=== PATIENT | female | born 1950 | race Caucasian/White ===

== ENCOUNTER 2017-08-06 14:41 | Emergency (ER) | payer OTHER ==
--- NOTE | 2017-08-06 15:28 | RAD REPORT ---
EXAM DESCRIPTION: RAD - Chest Single View - 08/06/2017 3:18 pm CLINICAL HISTORY: Chest pain. COMPARISON: None. FINDINGS: Portable technique limits examination quality. The lungs are grossly clear. The heart is normal in size. No displaced fractures. IMPRESSION: No acute intrathoracic process suspected.
[2017-08-06 15:51] LABS: Urine Blood TRACE (NEG); Urine Glucose 2+ (NEG); Urine Protein NEGATIVE (NEG)
[2017-08-06] MEDS ORDERED: INSULIN -REGULAR HUMAN 50 UNIT/0.5 ML ML ONE (16:04)
[2017-08-06 16:05] LABS: Absolute Lymphocytes (CBC) 1.4 K/uL (0.7-4.9); Absolute Monocytes 0.7 K/uL (0.1-1.3); Basophils % 0.6 % (0-1.3); Eosinophils % 1.3 % (0-4.4); Hematocrit 35.6 % (36.0-45.0); Lymphocytes % 13.8 % (15.3-44.8); MCH 27.6 pg (27.0-35.0); MCV 84.6 fL (80-100); MPV 8.7 fL (7.6-11.3); Monocytes % 6.7 % (3.3-12.3); RBC Red Blood Cell Count 4.21 M/uL (3.86-4.86)
[2017-08-06] MEDS ORDERED: METOPROLOL TARTRATE 5 MG/5 ML INJ IV ONE (16:05)
[2017-08-06] MEDS ORDERED: NA CHLORIDE 0.9% 500 ML ONE (16:05)
[2017-08-06] MEDS ORDERED: METOPROLOL TAR 25 MG TAB ONE (16:05)
[2017-08-06] MEDS ORDERED: MORPHINE 10 MG/ML VIAL ONE (16:05)
[2017-08-06 16:25] LABS: Bicarbonate 26 mEq/L (21-31); Glucose Level 368 mg/dL (65-120); Lipase 12 U/L (22-51); Potassium 4.2 mEq/L (3.6-5.0); Sodium Level 138 mEq/L (135-145)
[2017-08-06 16:31] LABS: ALT/SGPT 33 IU/L (10-60); AST/SGOT 30 IU/L (10-42); Albumin 3.7 g/dL (3.2-5.5); Alkaline Phosphatase 130 IU/L (42-121); BUN Blood Urea Nitrogen 32 mg/dL (6-20); Bilirubin Direct < 0.1 mg/dL (0-0.2); Bilirubin Total 0.4 mg/dL (0.3-1.2); Creatine Phosphokinase 50 IU/L (22-269); Magnesium 2.2 mg/dL (1.8-2.5); Protein, Total 6.9 g/dL (6.0-8.3)
[2017-08-06 16:33] LABS: CKMB Creatine Kinase MB 1.9 ng/ml (0.3-4.0)
[2017-08-06] MEDS ORDERED: ENOXAPARIN 40 MG/0.4 ML SQ ONE (16:55)
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
--- NOTE | 2017-08-06 16:59 | EKG ---
Test Date: 2017-08-06 Test Time: 14:54:39 Sheet Metal Former: GREGOR MEASUREMENT RESULTS: Intervals: Rate: 78 WV: 168 QRSD: 84 QT: 416 QTc: 474 [place]: P: 69 WV: 168 QRS: 53 T: 41 INTERPRETIVE STATEMENTS: Normal sinus rhythm Normal ECG No previous ECG available for comparison Electronically Signed On 08-06-17 16:59:32 CDT by Andres Mcdaniel
--- NOTE | 2017-08-06 16:59 | EDPHYS ---
Physician Documentation [facility] Name: Miriam Austin Age: 67 yrs Sex: Female : 1950 Arrival Date: 08/06/2017 Time: 14:49 Bed 19 Private MD: ED Physician Eric Amaya HPI: 08/06 15:05 This 67 yrs old Female presents to ER via Unassigned with complaints of Chest cp Pain. 15:05 The patient or guardian reports chest pain that is located primarily in the anterior cp chest wall, left. 15:05 Onset: suddenly, at 12:30. The pain radiates to the left arm. Associated signs and cp symptoms: Pertinent negatives: cough, diaphoresis, headache, lower extremity pain, lower extremity swelling, shortness of breath, vomiting. The chest pain is described as sharp. Duration: The patient or guardian reports a single episode, that is still ongoing, and unchanged. Historical: - Allergies: 15:07 No Known Allergies; ae1 - Home Meds: 15:07 Namenda 10 mg oral tab 1 tab 2 times per day [Active]; Aricept 5 mg Oral tab 1 tab once ae1 daily [Active]; - Immunization history:: Adult Immunizations up to date. - Social history:: Smoking status: Patient/guardian denies using tobacco. ROS: 15:06 Eyes: Negative for injury, pain, redness, and discharge. cp 15:06 Constitutional: Negative for body aches, chills, fever, poor PO intake. 15:06 ENT: Negative for drainage from ear(s), ear pain, sore throat, difficulty swallowing, difficulty handling secretions. 15:06 Cardiovascular: Positive for chest pain, Negative for edema, palpitations. 15:06 Respiratory: Negative for cough, dyspnea on exertion, shortness of breath, wheezing. 15:06 Abdomen/GI: Negative for abdominal pain, nausea, vomiting, and diarrhea, black/tarry stool, rectal bleeding. 15:06 Back: Negative for pain at rest, pain with movement, radiated pain. 15:06 MS/extremity: Positive for pain, of the left upper arm, Negative for paresthesias. 15:06 Neuro: Negative for altered mental status, headache, syncope, near syncope, weakness. 15:06 All other systems are negative. Exam: 15:05 ECG was reviewed by the Attending Physician. cp 15:10 Constitutional: The patient appears in no acute distress, alert, awake, cp non-diaphoretic, non-toxic, well developed, well nourished. 15:10 Head/Face: Normocephalic, atraumatic. Eyes: Pupils equal round and reactive to light, cp extra-ocular motions intact. Lids and lashes normal. Conjunctiva and sclera are non-icteric and not injected. Cornea within normal limits. Periorbital areas with no swelling, redness, or edema. ENT: Nares patent. No nasal discharge, no septal abnormalities noted. Tympanic membranes are normal and external auditory canals are clear. Oropharynx with no redness, swelling, or masses, exudates, or evidence of obstruction, uvula midline. Mucous membranes moist. Neck: Trachea midline, no thyromegaly or masses palpated, and no cervical lymphadenopathy. Supple, full range of motion without nuchal rigidity, or vertebral point tenderness. No Meningismus. Chest/axilla: Normal chest wall appearance and motion. Nontender with no deformity. No lesions are appreciated. 15:10 Cardiovascular: Rate: normal, Rhythm: regular, Pulses: Pulses are 2+ in right radial artery and left radial artery. Heart sounds: murmur, not appreciated, rub, not appreciated, gallop, not appreciated, Edema: is not appreciated, JVD: is not appreciated. 15:10 Respiratory: the patient does not display signs of respiratory distress, Respirations: normal, no use of accessory muscles, no retractions, no splinting, no tachypnea, labored breathing, is not present, Breath sounds: are clear throughout, no decreased breath sounds, no stridor, no wheezing. 15:10 Abdomen/GI: Inspection: abdomen appears normal, Bowel sounds: active, all quadrants, Palpation: soft, in all quadrants, mild abdominal tenderness, in the epigastric area, rebound tenderness, is not appreciated, voluntary guarding, is not appreciated, involuntary guarding, is not appreciated. 15:10 Back: pain, is absent, ROM is normal. 15:10 Skin: cellulitis, is not appreciated, no rash present. 15:10 Neuro: Orientation: to person, place \T\ time. Mentation: is normal, Cerebellar function: is grossly normal, Motor: moves all fours, strength is normal, Sensation: no obvious gross deficits. 17:43 ECG was reviewed by the Attending Physician. Vital Signs: 14:55 BP 162 / 66; Pulse 75; Resp 17; Temp 98.3(O); Pulse Ox 99% on R/A; Weight 63.5 kg (R); ae1 Pain 3/10; 15:44 BP 181 / 63; Pulse 79; Resp 17; Pulse Ox 100% on R/A; mh5 16:27 BP 166 / 71; Pulse 63; Resp 15; Pulse Ox 100% on R/A; ae1 16:34 BP 158 / 73; Pulse 62; Resp 21; Pulse Ox 100% on R/A; ae1 17:00 BP 163 / 73; Pulse 69; Resp 16; Pulse Ox 99% on R/A; lk1 17:30 BP 157 / 67; Pulse 63; Resp 18; Pulse Ox 98% on R/A; lk1 18:00 BP 156 / 68; Pulse 68; Resp 18; Pulse Ox 99% on R/A; lk1 MDM: 14:55 Patient medically screened. 16:00 Differential diagnosis: abnormal EKG, acute myocardial infarction, acute pericarditis, cp anxiety, chest wall pain, cholecystitis, Cholelithiasis costochondritis, esophagitis, gastritis, myocarditis, pancreatitis, pericarditis, pneumonia, pneumothorax, pulmonary embolus, stable angina, thoracic aortic disection, unstable angina. 17:00 Physician consultation: Julissa Sullivan MD was contacted at 17:00, regarding admission, cp to the telemetry unit. patient's condition, and will see patient in ED, shortly. 17:25 ED course: VSS. Patient evaluated by DR Sullivan in ED who recommends repeat EKG and cp troponin level. If both are negative for acute findings patient can be discharged to [facility] and f/u with primary supervisor cemetery workers. 18:18 Data reviewed: vital signs, nurses notes, lab test result(s), EKG, radiologic studies, cp plain films. 18:18 The patient was not given aspirin in the Emergency Department. Administered by EMS. 08/06 15:03 Order name: Basic Metabolic Panel; Complete Time: 16:36 cp 08/06 16:36 Interpretation: Normal except: GLUC 368; BUN 32; CRE 1.12; GFR 49. 08/06 15:03 Order name: BNP; Complete Time: 16:36 08/06 15:03 Order name: CBC with Diff; Complete Time: 16:09 08/06 16:09 Interpretation: Normal except: HGB 11.6; HCT 35.6; VENUS% 77.6; LYM% 13.8. 08/06 15:03 Order name: Ckmb; Complete Time: 16:36 08/06 15:03 Order name: CPK; Complete Time: 16:36 08/06 15:03 Order name: LFT's; Complete Time: 16:36 08/06 16:47 Interpretation: Normal except: ALK 130. 08/06 15:03 Order name: Magnesium; Complete Time: 16:36 08/06 15:03 Order name: PT-INR; Complete Time: 18:18 08/06 15:03 Order name: Ptt, Activated; Complete Time: 18:18 08/06 15:03 Order name: Troponin (emerg Dept Use Only); Complete Time: 16:36 08/06 15:03 Order name: XRAY Chest (1 view); Complete Time: 16:09 08/06 16:37 Interpretation: Report review. 08/06 15:03 Order name: Lipase; Complete Time: 16:36 08/06 15:45 Order name: Urine Dipstick--Ancillary (enter results); Complete Time: 16:09 [facility] 08/06 17:22 Order name: Troponin I: redraw \[id number]; Complete Time: 18:18 08/06 18:18 Interpretation: TROP < 0.03; Reviewed. 08/06 15:03 Order name: EKG; Complete Time: 15:04 08/06 15:03 Order name: Cardiac monitoring; Complete Time: 15:57 08/06 15:03 Order name: EKG - Nurse/Tech; Complete Time: 15:57 08/06 15:03 Order name: IV Saline Lock; Complete Time: 15:57 08/06 15:03 Order name: Labs collected and sent; Complete Time: 15:57 08/06 15:03 Order name: O2 Per Protocol; Complete Time: 15:57 08/06 15:03 Order name: O2 Sat Monitoring; Complete Time: 15:58 08/06 15:03 Order name: Urine Dipstick-Ancillary (obtain specimen); Complete Time: 15:58 cp 08/06 16:42 Order name: Labs - recollect needed; Complete Time: 18:33 ag 08/06 17:22 Order name: EKG; Complete Time: 17:22 cp 08/06 17:22 Order name: EKG - Nurse/Tech; Complete Time: 18:32 cp EC:05 Rate is 78 beats/min. Rhythm is regular. MA interval is normal. QRS interval is normal. cp QT interval is normal. No ST changes noted. Interpreted by me. Reviewed by me. 17:43 Rate is 62 beats/min. Rhythm is regular. MA interval is normal. QRS interval is normal. cp QT interval is normal. No ST changes noted. Interpreted by me. Reviewed by me. Administered Medications: 16:00 Drug: NS 0.9% 500 ml Route: IV; Rate: bolus; Site: left antecubital; ae1 17:30 Follow up: Response: No adverse reaction; IV Status: Completed infusion lk1 16:14 Drug: Metoprolol 25 mg Route: PO; ae1 17:00 Follow up: Response: No adverse reaction lk1 16:15 Drug: Lopressor 5 mg Route: IVP; Site: left antecubital; ae1 16:35 Follow up: Response: Blood pressure is lowered ae1 16:20 Drug: NovoLIN R 7 units {Co-Signature: jl7 (Krystyna Santiago RN).} Route: Sub-Q; Site: left ae1 lower abdomen; 16:50 Follow up: Response: No adverse reaction lk1 16:41 Not Given (Patient Refused): morphine 2 mg IVP once ae1 16:59 Drug: Lovenox 40 mg Route: Sub-Q; Site: abdomen; jl7 17:25 Follow up: Response: No adverse reaction lk1 Point of Care Testing: Blood Glucose: 15:00 Blood Glucose: 348 mg/dL; ae1 Ranges: Critical Glucose Levels:Adult <50 mg/dl or >400 mg/dl <40 mg/dl or >180 mg/dl Disposition: 19:14 Co-signature as Attending Physician, Eric Amaya MD I agree with the assessment and siobhan plan of care. Disposition: 08/06/17 17:30 Discharged to Home. Impression: Hyperglycemia, unspecified, Other chest pain - Chest Pain after lunch with Elevated Blood sugar. No other complains. . - Condition is Stable. - Discharge Instructions: Hyperglycemia, Nonspecific Chest Pain, [id number]. - Medication Reconciliation Form, Thank You Letter, Antibiotic Education, Prescription Opioid Use form. - Follow up: Private Physician; When: 08/10/2017; Reason: ACS f/u. - Problem is chronic. - Symptoms are resolved. Signatures: Dispatcher [employer] EDEric Hou MD MD cha Gallardo, Ana ag Page, Corey, PA PA cp Kluge, Leah, RN RN lk1 Omari Lam RN RN ae1 Krystyna Santiago RN RN jl7 Julissa Sullivan MD MD rp3 Krystyna Santiago RN jl7
[2017-08-06 17:45] LABS: Protime INR 1.05
--- NOTE | 2017-08-07 07:02 | EKG ---
Test Date: 2017-08-06 Test Time: 17:35:19 Mri Manager: GREGOR MEASUREMENT RESULTS: Intervals: Rate: 62 UT: 164 QRSD: 88 QT: 458 QTc: 464 [place]: P: 42 [place]: 164 QRS: 51 T: 43 INTERPRETIVE STATEMENTS: Normal sinus rhythm Normal ECG Compared to ECG 08/06/2017 14:54:39 No significant changes Electronically Signed On 08-07-17 07:01:48 CDT by Andres Mcdaniel
== END 2017-08-06 18:41 | disposition home or self-care (01) ==
LOC: ER 14:41 → ERHOLD 17:02 → UNDOADMOB 17:02 → ER 18:41
DX: R73.9 Hyperglycemia, unspecified (principal)
CPT/HCPCS: 36415; 71045; 80048; 80076; 81003; 82550; 82553; 82962; 83690; 83735; 83880; 84484 ×2; 85025; 85610; 85730; 93005 ×2; 96361; 96372; 96374; 99285; J1650